=== PATIENT | female | born 2000 | race Caucasian/White ===

== ENCOUNTER 2019-05-31 15:05 | Emergency (ER) | payer BC ==
[2019-05-31 15:28] VITALS: BP 124/65
[2019-05-31] MEDS ORDERED: Ondansetron ODT TAB* 4 MG SL ONE (15:37)
--- NOTE | 2019-05-31 15:37 | UC ---
Throat Pain/Nasal Ravindra HPI - HPI Summary HPI Summary: Sore throat for 3 days with some nausea today. Pt has been eating and drinking until she ate lunch today and then vomited here. That is the first time she has vomited. Other family members have strep pharyngitis, the "stomach bug", tonsillitis and mono. - History of Current Complaint Chief Complaint: UCGeneralIllness Stated Complaint: SORE THROAT, COUGH, AND NAUSEA Time Seen by Provider: 05/31/19 15:09 Hx Obtained From: Patient ?: No Onset/Duration: Gradual Onset Severity: Mild Pain Intensity: 2 Cough: None Associated Signs & Symptoms: Positive: Negative - Allergies/Home Medications Allergies/Adverse Reactions: Allergies Allergy/AdvReac Type Severity Reaction Status Date / Time Sulfa (Sulfonamide Allergy Intermediate Hives Verified 05/31/19 15:28 Antibiotics) PMH/Surg Hx/FS Hx/Imm Hx Previously Healthy: Yes - Surgical History Surgical History: None - Family History Known Family History: Positive: Non-Contributory - Social History Alcohol Use: None Substance Use Type: None Smoking Status (MU): Never Smoked Tobacco Review of Systems All Other Systems Reviewed And Are Negative: Yes ENT: Positive: Sore Throat Gastrointestinal: Positive: Vomiting - Vomited one time here, Nausea Is Patient Immunocompromised?: No Physical Exam Triage Information Reviewed: Yes Appearance: Well-Appearing, No Pain Distress, Well-Nourished, Other: - Pt was very pale prior to vomiting but once she was in the room on the stretcher, her color was much better Vital Signs: Initial Vital Signs Temp 97.7 F 05/31/19 15:15 Pulse 70 05/31/19 15:15 Resp 18 05/31/19 15:15 BP 124/65 05/31/19 15:15 Pulse Ox 100 05/31/19 15:15 Vital Signs Reviewed: Yes Eyes: Positive: Conjunctiva Clear ENT: Positive: Pharyngeal erythema, TMs normal, Uvula midline Neck: Positive: Supple, Nontender, No Lymphadenopathy Respiratory: Positive: Lungs clear, Normal breath sounds, No respiratory distress, No accessory muscle use Cardiovascular: Positive: RRR, No Murmur, Pulses Normal, Brisk Capillary Refill Abdomen Description: Positive: Nontender, No Organomegaly, Soft. Negative: CVA Tenderness (R), CVA Tenderness (L), Distended, Guarding, Hepatomegaly, McBurney' s Point Tenderness, Splenomegaly Bowel Sounds: Positive: Present Musculoskeletal Exam: Normal Neurological Exam: Normal Psychological Exam: Normal Skin Exam: Normal Throat Pain/Nasal Course/Dx - Course Course Of Treatment: Vomitied one time here and felt much better after that. Rapid strep: Pt given Zofran 4 mg SL here. - Differential Dx/Diagnosis Provider Diagnosis: Vomiting Discharge ED - Sign-Out/Discharge Documenting (check all that apply): Patient Departure All imaging exams completed and their final reports reviewed: No Studies - Discharge Plan Condition: Fair Disposition: HOME Prescriptions: Ondansetron ODT TAB* [Zofran 4 MG Odt TAB*] 4 mg SL Q8H PRN #10 tab.odt PRN Reason: Nausea Patient Education Materials: Acute Nausea and Vomiting (ED) Referrals: [facility] [Outside] No Primary Care Phys,NOPCP [Primary Care Provider] - Additional Instructions: Clear fluids today then gradually increase to your regular diet. Go to the ER if you feel light headed and you feel like you are going to pass put. Avoid spicy and fatty foods. - Billing Disposition and Condition Condition: FAIR Disposition: Home
== END 2019-05-31 16:20 | disposition home or self-care (01) ==
LOC: UCEAST 15:05
DX: R11.2 Nausea with vomiting, unspecified (principal); J02.9 Acute pharyngitis, unspecified; R05 Cough; Z88.2 Allergy status to sulfonamides
CPT/HCPCS: 87651; 99202; A9270-GY; G0463